=== PATIENT | female | born 1935 | race Caucasian/White ===

== ENCOUNTER 2018-01-26 13:46 | Inpatient (IN) | payer BC, MEDICARE ==
[~2018-01-26] VITALS: Ht 165.1 cm; Wt 77.1 kg
--- NOTE | 2018-01-26 06:55 | NUR ---
CALLED [facility] FOR ORDERS FOR PT. 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 AWAITING ORDER FOR PT. WILL ENDORSE TO MARINE FUEL DOCK ATTENDANT.
[~2018-01-26 13:46] MED LIST: ACET-73 PO; ACID1TAB12 PO; ASPI-605 PO; CHOL10002 PO; CHOL20004 PO; CHOL4PAC5 PO; CYAN10009 PO; DIPH1TAB PO; HYDR-4354 PO; LIDO30AD10 TD; LORA-258 PO; LORA0.5T48 PO; LOSA100T15 PO; MAG30ORA PO; MAGN400T26 PO; METR250T PO; MULT1TAB11 PO; POTA-10 PO; PREDNISONE PO; PROC-11 PO; TEMA15CA5 PO; TEMA7.5C PO; [UNRECOGNIZED DRUG - OTHER] PO
[2018-01-26 14:34] LABS: BASOPHILS % (AUTO) 0.3 % (0.0-2.0); EOSINOPHILS # (AUTO) 0.1 K/uL (0.0-0.7); EOSINOPHILS % (AUTO) 0.6 % (0.0-7.0); HEMATOCRIT 34.9 % (31.2-41.9); HEMOGLOBIN 11.8 g/dL (10.9-14.3); LYMPHOCYTES # (AUTO) 0.7 K/uL (20.0-40.0); MEAN CORPUSCULAR HEMOGLOBIN 30.9 uug (24.7-32.8); MEAN CORPUSCULAR HGB CONC 34 g/dL (32.3-35.6); MEAN CORPUSCULAR VOLUME 91.2 fL (75.5-95.3); MONOCYTES # (AUTO) 0.8 K/uL (2.0-10.0); MONOCYTES % (AUTO) 5.8 % (0.0-11.0); NEUTROPHILS # (AUTO) 12.7 K/uL (1.8-8.9); NEUTROPHILS % (AUTO) 88.3 % (38.5-71.5); PLATELET COUNT (AUTO) 377 K/uL (179-408); RED BLOOD CELL COUNT(AUTO) 3.83 MIL/uL (3.63-4.92); WHITE BLOOD COUNT (AUTO) 14.4 K/uL (3.8-11.8)
[2018-01-26 14:45] LABS: CARBON DIOXIDE 20 mmol/L (21-32); CHLORIDE 94 mmol/L (98-107); CREATININE 3.1 mg/dL (0.6-1.3); GLUCOSE 123 mg/dL (74-106); POTASSIUM 4.8 mmol/L (3.5-5.1); UREA NITROGEN, BLOOD 32 mg/dL (7-18)
[2018-01-26 14:58] LABS: ALANINE AMINOTRANSFERASE 20 U/L (14-59); ALKALINE PHOSPHATASE 84 U/L (50-136); ASPARTATE AMINOTRANSFERASE 22 U/L (15-37); BILIRUBIN,DIRECT 0.6 mg/dL (0.0-0.2); TOTAL PROTEIN, SERUM 7.6 g/dL (6.4-8.2)
[2018-01-26] MEDS ORDERED: QUET25TA PO (15:27)
[2018-01-26] MEDS ORDERED: ESCI10TA PO (15:27)
[2018-01-26] MEDS ORDERED: TRAM50TA2 PO (15:27)
[2018-01-26] MEDS ORDERED: DOCU-274 PO (15:27)
[2018-01-26] MEDS ORDERED: OXYC30TA2 PO (15:27)
[2018-01-26] MEDS ORDERED: SENN-167 PO (15:27)
[2018-01-26] MEDS ORDERED: TEMA15CA PO (15:27)
[2018-01-26] MEDS ORDERED: AZITHROMYCIN IV 500 MG in IV DEXTROSE 5% 250 ML IV ONE (15:45)
[2018-01-26] MEDS ORDERED: CEFTRIAXONE 1 G in IV DEXTROSE 5% 50 ML IV ONE (15:45)
[2018-01-26] MEDS ORDERED: AZITHROMYCIN 500 MG VIAL IV ONE (15:47)
[2018-01-26] MEDS ORDERED: CEFTRIAXONE 1 G VIAL ONE (15:47)
--- NOTE | 2018-01-26 16:55 | NUR ---
MRSA swab collected and sent to LAB.
[2018-01-26 17:41] VITALS: BP 116/42
[2018-01-26 19:16] VITALS: BP 147/70
--- NOTE | 2018-01-26 19:20 | NUR ---
Received patient lying in be. AAOX3. Can make her needs known. Denies any pain or SOB at this time. In no acute distress. NSR on tele at 86/min. On O2 at 3LPM via NC in place. IV site on right AC intact and patent. Safety measure initiated and call sánchez within reach.
--- NOTE | 2018-01-26 20:35 | NUR ---
@2029: Paged Doctor Dickens for admitting orders. Awaiting for return call. @2034: Doctor Dickens called with admitting orders given and ordered to continue current medications.
[2018-01-26] MEDS ORDERED: TRAMADOL HCL 50 MG TABLET PO ONE (21:30)
[2018-01-26] MEDS ORDERED: TEMAZEPAM 15 MG CAPSULE PO ONE (21:45)
[2018-01-26 23:35] VITALS: BP 137/83
[2018-01-27] VITALS (10 sets, daily range): BP systolic 111–185; BP diastolic 45–85
[2018-01-27] MEDS ORDERED: ACETAMINOPHEN 325 MG TABLET PO PRN (04:45)
--- NOTE | 2018-01-27 04:58 | NUR ---
PATIENT WITH NO URINARY OUTPUT TILL NOW. COMPLAINING OF WANTING TO URINATE BUT UNABLE TO. BLADDER SCAN DONE AND NOTED WITH 496CC OF URINE IN THE BLADDER. ARENAS CATHETER FR 16 WITH 10ML BALLOON INSERTED PER ORDER AND NOTED WITH 500ML OF YELLOW URINE OUTPUT ON ARENAS BAG. PATIENT FELT RELIEF RIGHT AFTER.
--- NOTE | 2018-01-27 06:08 | NUR ---
AAOX3. Denies any pain or SOB at this time. In no acute distress. NSR on tele at 78/min. On O2 at 3LPM via NC in place. o2 sat a 98%. Pepe catheter intact and draining via gravity. IV site on right AC intact and patent. Needs assessed and attended to. Safety measure maintained and call sánchez within reach.
[2018-01-27 07:07] LABS: BASOPHILS # (AUTO) 0.1 K/uL (0.0-8.0); BASOPHILS % (AUTO) 0.5 % (0.0-2.0); EOSINOPHILS # (AUTO) 0.2 K/uL (0.0-0.7); HEMATOCRIT 31.9 % (31.2-41.9); HEMOGLOBIN 10.8 g/dL (10.9-14.3); LYMPHOCYTES # (AUTO) 0.6 K/uL (20.0-40.0); LYMPHOCYTES % (AUTO) 5.3 % (20.5-51.5); MEAN CORPUSCULAR HEMOGLOBIN 30.9 uug (24.7-32.8); MEAN CORPUSCULAR HGB CONC 34 g/dL (32.3-35.6); MONOCYTES # (AUTO) 0.8 K/uL (2.0-10.0); MONOCYTES % (AUTO) 6.6 % (0.0-11.0); NEUTROPHILS # (AUTO) 9.8 K/uL (1.8-8.9); NEUTROPHILS % (AUTO) 85.6 % (38.5-71.5); PLATELET COUNT (AUTO) 357 K/uL (179-408); WHITE BLOOD COUNT (AUTO) 11.4 K/uL (3.8-11.8)
[2018-01-27 07:15] LABS: CARBON DIOXIDE 23 mmol/L (21-32); CHLORIDE 97 mmol/L (98-107); GLUCOSE 104 mg/dL (74-106); POTASSIUM 4.9 mmol/L (3.5-5.1); UREA NITROGEN, BLOOD 34 mg/dL (7-18)
[2018-01-27] MEDS: predniSONE 5 MG TABLET PO SCH (08:58)
[2018-01-27] MEDS: SENNOSIDES 1 TABLET PO SCH (08:58)
[2018-01-27] MEDS: DOCUSATE SODIUM 100 MG CAPSULE PO SCH ×2 (08:58→20:56)
[2018-01-27] MEDS ORDERED: OXYCODONE HCL 10 MG TAB.SR.12H PO SCH (09:00)
[2018-01-27] MEDS ORDERED: LOSARTAN POTASSIUM 50 MG TABLET PO SCH (09:00)
[2018-01-27] MEDS ORDERED: OXYCODONE HCL 5 MG TABLET PO SCH (09:00)
[2018-01-27] MEDS ORDERED: POTASSIUM CHLORIDE 10 MEQ TAB.PRT.SR PO SCH (09:00)
[2018-01-27] MEDS: ESCITALOPRAM OXALATE 10 MG TABLET PO SCH (09:00)
[2018-01-27] MEDS: QUETIAPINE FUMARATE 25 MG TABLET PO SCH ×2 (09:01→21:50)
[2018-01-27] MEDS: TRAMADOL HCL 50 MG TABLET PO SCH ×2 (09:02→20:58)
[2018-01-27] MEDS: IV NS 1000 ML 1,000 ML IV PRN (10:38)
[2018-01-27] MEDS: OXYCODONE HCL 10 MG TAB.SR.12H PO SCH ×3 (12:00→20:56)
--- NOTE | 2018-01-27 15:00 | NUR ---
patient confused and disoriented, no altered mental status from baseline. patient becoming increasingly anxious, frequent redirection needed, patient attempting to pull out agee catheter, pulled out IV line, removing nasal canula. patient remains confused frequent redirection needed for emotional support. patient calm intermittently, however has poor insight/impaired. judgement is impaired. continue to monitor and redirect patient.
[2018-01-27 15:29] LABS: *BILIRUBIN,URIN NEGATIVE (NEGATIVE); *BLOOD, URINE 1+ (NEGATIVE); *CLARITY,URINE SLIGHTLY CLOUDY (CLEAR); *COLOR,URINE YELLOW (YELLOW); *KETONES,URINE NEGATIVE (NEGATIVE); *PROTEIN,URINE TRACE (NEGATIVE); *UROBILINOGEN,URINE 0.2 E.U./dl (NORMAL); LEUKOCYTE ESTERASE ,URINE 2+ (NEGATIVE); NITRITE, URINE NEGATIVE (NEGATIVE); PH,URINE 5.5 (5.0-8.0); UGLUCOSE NEGATIVE (NEGATIVE)
[2018-01-27 15:34] LABS: *CREATININE,URINE 43.4 mg/dL (30-125); *URINE TOTAL PROTEIN RANDOM 32.1 mg/dL (<150/24HR)
[2018-01-27] MEDS ORDERED: AZITHROMYCIN IV 500 MG in IV DEXTROSE 5% 250 ML IV SCH (17:00)
[2018-01-27 17:02] LABS: WBC,URINE 20-50 /HPF (0-3)
[2018-01-27 17:03] LABS: MUCUS,URINE FEW /LPF (0-FEW); URINE AMORPHOUS URATE MODERATE /HPF
--- NOTE | 2018-01-27 17:20 | NUR ---
patient calm enough to start another IV line, patient continues with episodes of anxiety, frequent redirection needed.
[2018-01-27] MEDS: CEFTRIAXONE 1 G in IV DEXTROSE 5% 50 ML IV SCH (17:38)
--- NOTE | 2018-01-27 19:15 | NUR ---
Received patient lying in bed. AAOX1-2 with periods of confusion. Slightly anxious. No signs or symptoms of any pain or SOB at this time. In no acute distress. On O2 at 2LPM via NC in place. NSR on tele at 82/min. IV site on right forearm intact and patent. Safety measure initiated and call sánchez within reach.
--- NOTE | 2018-01-27 19:20 | NUR ---
patient continues intermittenly hypertensive, however patient continues anxious, confused disoriented, verbalizing she needs to get picked up by her son, removing oxygen, 02 level 93-94% on room air . Paged Nephrology Doctor thru exchange, spoke with Dr Kirkland informed of patient behavior, discussed HS meds, Orders received for one time dose of Seroquel 25mg PO once now and Hydralazine 20mg PO Q8PRN for SBP greater than 170. orders repeated back to MD, endorsed to nursing.
[2018-01-27] MEDS ORDERED: QUETIAPINE FUMARATE 25 MG TABLET PO ONE (19:30)
[2018-01-27] MEDS ORDERED: hydrALAZINE HCL 10 MG TABLET PO PRN (19:30)
[2018-01-27] MEDS: TEMAZEPAM 15 MG CAPSULE PO SCH (21:50)
[2018-01-28] VITALS (7 sets, daily range): BP systolic 99–157; BP diastolic 40–116
[2018-01-28] MEDS: PANTOPRAZOLE SODIUM 40 MG TABLET.DR PO SCH (06:04)
--- NOTE | 2018-01-28 06:22 | NUR ---
AAOX1-2 with periods of confusion. No signs or symptoms of any pain or SOB at this time. On O2 at 2LPM via NC in place. NSR on tele at 85/min. IV site on right forearm intact and patent. IVF infusing. Safety measure maintained and call sánchez within reach.
[2018-01-28 06:41] LABS: BASOPHILS % (AUTO) 0.2 % (0.0-2.0); EOSINOPHILS # (AUTO) 0.3 K/uL (0.0-0.7); EOSINOPHILS % (AUTO) 2.4 % (0.0-7.0); HEMATOCRIT 33.3 % (31.2-41.9); HEMOGLOBIN 11.3 g/dL (10.9-14.3); LYMPHOCYTES % (AUTO) 8.7 % (20.5-51.5); MEAN CORPUSCULAR HEMOGLOBIN 31.1 uug (24.7-32.8); MEAN CORPUSCULAR HGB CONC 34 g/dL (32.3-35.6); MEAN CORPUSCULAR VOLUME 91.6 fL (75.5-95.3); MONOCYTES # (AUTO) 0.7 K/uL (2.0-10.0); MONOCYTES % (AUTO) 5.5 % (0.0-11.0); NEUTROPHILS # (AUTO) 9.9 K/uL (1.8-8.9); NEUTROPHILS % (AUTO) 83.2 % (38.5-71.5); PLATELET COUNT (AUTO) 358 K/uL (179-408); RED BLOOD CELL COUNT(AUTO) 3.64 MIL/uL (3.63-4.92); WHITE BLOOD COUNT (AUTO) 11.9 K/uL (3.8-11.8)
[2018-01-28 06:56] LABS: ALANINE AMINOTRANSFERASE 22 U/L (14-59); ALKALINE PHOSPHATASE 96 U/L (50-136); ASPARTATE AMINOTRANSFERASE 22 U/L (15-37); BILIRUBIN,TOTAL 0.3 mg/dL (0.2-1.0); CARBON DIOXIDE 23 mmol/L (21-32); CHLORIDE 99 mmol/L (98-107); CREATININE 2.1 mg/dL (0.6-1.3); GLUCOSE 87 mg/dL (74-106); PHOSPHOROUS 4.6 mg/dL (2.5-4.9); POTASSIUM 4.9 mmol/L (3.5-5.1); TOTAL PROTEIN, SERUM 7.1 g/dL (6.4-8.2); UREA NITROGEN, BLOOD 32 mg/dL (7-18)
[2018-01-28] MEDS: ENOXAPARIN SODIUM 30 MG/0.3 ML DISP.SYRIN SUBCUT SCH ×2 (09:00→10:00)
[2018-01-28 09:05] LABS: MAGNESIUM 2.2 mg/dL (1.8-2.4); PHOSPHOROUS 4.9 mg/dL (2.5-4.9)
[2018-01-28] MEDS: predniSONE 5 MG TABLET PO SCH (09:58)
[2018-01-28] MEDS: DOCUSATE SODIUM 100 MG CAPSULE PO SCH ×2 (09:58→22:05)
[2018-01-28] MEDS: OXYCODONE HCL 10 MG TAB.SR.12H PO SCH ×2 (09:58→22:08)
[2018-01-28] MEDS: QUETIAPINE FUMARATE 25 MG TABLET PO SCH ×2 (09:58→22:05)
[2018-01-28] MEDS: SENNOSIDES 1 TABLET PO SCH (09:58)
[2018-01-28] MEDS: ESCITALOPRAM OXALATE 10 MG TABLET PO SCH (09:58)
[2018-01-28] MEDS: TRAMADOL HCL 50 MG TABLET PO SCH ×2 (09:58→22:05)
[2018-01-28] MEDS: IV NS 1000 ML 1,000 ML IV PRN (10:18)
--- NOTE | 2018-01-28 10:30 | NUR ---
Held Lovenox 30 mg due to thoracentesis procedure today. consent obtain over the phone by the son and obtained verbali consent from the patient Addendum: 01/28/18 at 1454 by COY BORJAS RN Charge nurse verified consent. Son's name is Anjum Martinez. Dr. Figueroa assessed patient in the morning and explained risks and benefits of thoracentesis to the patient
--- NOTE | 2018-01-28 14:20 | NUR ---
WOUND CARE CONSULT: PT PRESENTS WITH RT EAR WOUND/LESION, AND RT LATERAL ANKLE DRY ESCHAR, PRESENT ON ADMISSION. RECOMMEND SURGICAL CONSULT. RECOMMENDATIONS MADE FOR WOUND CARE AND SKIN PROTECTION. DISCUSSED WITH NURSING STAFF. WILL SEE PRN. BUTLER IN AGREEMENT WITH PLAN OF CARE.
--- NOTE | 2018-01-28 14:24 | NUR ---
S/P right side thoracentesis 210cc/hr removed. Collected drainage from right outer ear tragus and sent down to lab
[2018-01-28] MEDS ORDERED: Z GUARD REMEDY PASTE 57 GM TUBE TOP PRN (14:30)
--- NOTE | 2018-01-28 14:32 | NUR ---
Wound care: Right ankle offloading, mepilex applied to eschar. Right ear tragus, cleansed with NS, applied Xeroform and covered with dry dressing
[2018-01-28] MEDS: CEFTRIAXONE 1 G in IV DEXTROSE 5% 50 ML IV SCH (15:00)
--- NOTE | 2018-01-28 15:26 | NUR ---
Right side fluid from thoracentesis sent down to lab as well
--- NOTE | 2018-01-28 15:27 | NUR ---
Patient is sleeping comfortable after thoracentesis, no immediate s/sx of SOB, pain, distress or discomfort. VS as ordered and documented by RESIDENTIAL CASE MANAGER, VS stable. Will continue to monitor the patient.
--- NOTE | 2018-01-28 19:30 | NUR ---
Received patient in stable condition. No acute distress noted. Vital signs within range. Pertinent assessment completed. Patient noted sleeping at start of shift, slightly lethargic upon assessment. Noted with right ear dressing. Dressing intact. No signs of leaking/drainage at wound site. Patient also has a right heel wound with mepilex covering the wound site. Dressing intact. Right forearm IV site is patent running with IV NS at 65cc/hr. No signs of infiltration noted. On ATB therapy for UTI & PNA. Patient also with agee cath. Agee bag is off the floor & hanging below the level of the bladder. Patient non ambulatory. Bed in low position & locked. Call light within reach. Will continue to monitor through shift.
[2018-01-28] MEDS: TEMAZEPAM 15 MG CAPSULE PO SCH (22:05)
[2018-01-28] MEDS: Z GUARD REMEDY PASTE 57 GM TUBE TOP SCH (22:07)
[2018-01-29] MEDS: IV NS 1000 ML 1,000 ML IV PRN ×2 (02:37→19:50)
[2018-01-29 03:19] VITALS: BP 138/79
[2018-01-29 06:26] LABS: BASOPHILS # (AUTO) 0.1 K/uL (0.0-8.0); BASOPHILS % (AUTO) 0.8 % (0.0-2.0); EOSINOPHILS # (AUTO) 0.2 K/uL (0.0-0.7); EOSINOPHILS % (AUTO) 1.5 % (0.0-7.0); HEMATOCRIT 30.5 % (31.2-41.9); HEMOGLOBIN 10.3 g/dL (10.9-14.3); LYMPHOCYTES # (AUTO) 0.8 K/uL (20.0-40.0); LYMPHOCYTES % (AUTO) 8.3 % (20.5-51.5); MEAN CORPUSCULAR HEMOGLOBIN 30.7 uug (24.7-32.8); MEAN CORPUSCULAR HGB CONC 34 g/dL (32.3-35.6); MEAN CORPUSCULAR VOLUME 91.4 fL (75.5-95.3); MONOCYTES # (AUTO) 0.6 K/uL (2.0-10.0); MONOCYTES % (AUTO) 6.3 % (0.0-11.0); NEUTROPHILS # (AUTO) 8.3 K/uL (1.8-8.9); NEUTROPHILS % (AUTO) 83.1 % (38.5-71.5); PLATELET COUNT (AUTO) 361 K/uL (179-408); RED BLOOD CELL COUNT(AUTO) 3.34 MIL/uL (3.63-4.92)
[2018-01-29] MEDS: PANTOPRAZOLE SODIUM 40 MG TABLET.DR PO SCH (06:33)
[2018-01-29 06:41] LABS: ALANINE AMINOTRANSFERASE 18 U/L (14-59); ALKALINE PHOSPHATASE 81 U/L (50-136); ASPARTATE AMINOTRANSFERASE 18 U/L (15-37); BILIRUBIN,TOTAL 0.3 mg/dL (0.2-1.0); CARBON DIOXIDE 22 mmol/L (21-32); CHLORIDE 104 mmol/L (98-107); CREATININE 1.5 mg/dL (0.6-1.3); GLUCOSE 99 mg/dL (74-106); MAGNESIUM 1.8 mg/dL (1.8-2.4); PHOSPHOROUS 4.1 mg/dL (2.5-4.9); POTASSIUM 5.6 mmol/L (3.5-5.1); TOTAL PROTEIN, SERUM 6.4 g/dL (6.4-8.2); UREA NITROGEN, BLOOD 29 mg/dL (7-18)
--- NOTE | 2018-01-29 06:49 | NUR ---
Stable during the night. No acute distress noted. Vital signs within range. All needs attended to. Kept clean & dry, changed per diaper soiling. Turned & reposition every 2 hours. Skin care provided. Dressings intact & dry. All medications administered per MD order. Safety measures implemented. Call light in reach. Will endorse to day shift nurse.
[2018-01-29] MEDS: QUETIAPINE FUMARATE 25 MG TABLET PO SCH ×2 (08:16→20:29)
[2018-01-29] MEDS: ESCITALOPRAM OXALATE 10 MG TABLET PO SCH (08:16)
[2018-01-29] MEDS: predniSONE 5 MG TABLET PO SCH (08:16)
[2018-01-29] MEDS: DOCUSATE SODIUM 100 MG CAPSULE PO SCH ×3 (08:16→20:29)
[2018-01-29] MEDS: SENNOSIDES 1 TABLET PO SCH (08:16)
[2018-01-29] MEDS: OXYCODONE HCL 10 MG TAB.SR.12H PO SCH ×2 (09:36→22:17)
[2018-01-29] MEDS: ENOXAPARIN SODIUM 30 MG/0.3 ML DISP.SYRIN SUBCUT SCH (09:37)
[2018-01-29] MEDS: Z GUARD REMEDY PASTE 57 GM TUBE TOP SCH ×2 (09:38→20:33)
[2018-01-29] MEDS: TRAMADOL HCL 50 MG TABLET PO SCH ×2 (09:39→20:30)
[2018-01-29] MEDS ORDERED: SODIUM POLYSTYRENE SULFONATE 15 G/60 ML LIQUID UDC PO ONE (09:45)
[2018-01-29] MEDS ORDERED: FUROSEMIDE 40 MG/4 ML VIAL IV ONE ×2 (09:45→10:45)
[2018-01-29 11:21] VITALS: BP 149/59
[2018-01-29 14:48] LABS: CARBON DIOXIDE 23 mmol/L (21-32); CHLORIDE 103 mmol/L (98-107); CREATININE 1.4 mg/dL (0.6-1.3); GLUCOSE 115 mg/dL (74-106); UREA NITROGEN, BLOOD 26 mg/dL (7-18)
[2018-01-29 15:18] VITALS: BP 133/67
[2018-01-29] MEDS: CEFTRIAXONE 1 G in IV DEXTROSE 5% 50 ML IV SCH (15:22)
--- NOTE | 2018-01-29 18:25 | NUR ---
Pt was resting comfortably in bed, decrease of appetite noted, 25% consumed every meal, pt had 1 bowel movement that was not formed and yellow in color. Swallow evaluation ordered and pt diet was changed to puree. Pain managed with medication and pt verbalizes pain 10/10. medication effective pt sleeping throughout shift. 1800 cc were collected from agee catheter and no signs of cloudy, sedimentation in Agee. Urine yellow and clear. SOB not noted, on 2L nasal cannula, Continue to monitor pt.
--- NOTE | 2018-01-29 19:30 | NUR ---
Received patient in stable condition. No acute distress noted. Currently sleeping at start of shift, easy to arouse. Pertinent assessment completed. A/Ox1-2 with some confusion. Able to make some of her needs known. Dressing on right ear/side of face is dry, intact, & clean. No leakage or draining noted at start of shift. Right ankle dressing also clean, dry, intact. Patient with agee cath. IV site is patent running with NS at 65cc/hr. Bed in low position & locked. Call light within reach. Will continue to monitor through shift.
[2018-01-29 20:00] VITALS: BP 163/66
[2018-01-29] MEDS: TEMAZEPAM 15 MG CAPSULE PO SCH (21:00)
--- NOTE | 2018-01-29 22:17 | NUR ---
Restoril not administered. Patient sleeping well. No distress noted. Will continue to monitor through shift.
[2018-01-30 05:00] VITALS: BP 173/74
[2018-01-30 06:15] LABS: BASOPHILS % (AUTO) 0.7 % (0.0-2.0); EOSINOPHILS # (AUTO) 0.3 K/uL (0.0-0.7); EOSINOPHILS % (AUTO) 4.7 % (0.0-7.0); HEMATOCRIT 29.2 % (31.2-41.9); MEAN CORPUSCULAR HGB CONC 34 g/dL (32.3-35.6); MEAN CORPUSCULAR VOLUME 90.1 fL (75.5-95.3); MONOCYTES # (AUTO) 0.6 K/uL (2.0-10.0); MONOCYTES % (AUTO) 7.7 % (0.0-11.0); NEUTROPHILS # (AUTO) 5.4 K/uL (1.8-8.9); NEUTROPHILS % (AUTO) 72.9 % (38.5-71.5); PLATELET COUNT (AUTO) 364 K/uL (179-408); RED BLOOD CELL COUNT(AUTO) 3.24 MIL/uL (3.63-4.92); WHITE BLOOD COUNT (AUTO) 7.4 K/uL (3.8-11.8)
[2018-01-30] MEDS: PANTOPRAZOLE SODIUM 40 MG TABLET.DR PO SCH (06:15)
--- NOTE | 2018-01-30 06:33 | NUR ---
Patient slept well during the night. No acute distress noted. All needs attended to. Kept clean & dry. Diaper changed per soiling. Dressings to ear/right side of face Changed. Right ankle dressing clean, dry, intact. Skin care provided. All medications administered per order. Patient compliant with care. Safety measures implemented. Call light within reach. Will endorse to day shift nurse.
[2018-01-30 06:41] LABS: ALANINE AMINOTRANSFERASE 25 U/L (14-59); ALKALINE PHOSPHATASE 75 U/L (50-136); ASPARTATE AMINOTRANSFERASE 34 U/L (15-37); BILIRUBIN,TOTAL 0.3 mg/dL (0.2-1.0); CARBON DIOXIDE 29 mmol/L (21-32); CHLORIDE 103 mmol/L (98-107); CREATININE 1.1 mg/dL (0.6-1.3); GLUCOSE 83 mg/dL (74-106); MAGNESIUM 1.3 mg/dL (1.8-2.4); PHOSPHOROUS 2.7 mg/dL (2.5-4.9); POTASSIUM 3.9 mmol/L (3.5-5.1); UREA NITROGEN, BLOOD 20 mg/dL (7-18)
--- NOTE | 2018-01-30 07:20 | NUR ---
PATIENT RECEIVED ON BED. NO ACUTE DISTRESS NOTED. IV ACCESS INTACT AND PATENT. IVF INFUSING WELL BM X1 PER ENTRY LEVEL ASSISTANT MANAGER. WOUND DRESSING CLEAN AND DRY, INTACT ON RIGHT EAR. NO COMPLAINTS OF PAIN/DISCOMFORT AT THIS TIME FC IN PLACE AND INTACT. CALL LIGHT CARLOS BULL. WILL CONTINUE TO MONITOR CLOSELY.
[2018-01-30] MEDS ORDERED: CEFT1VIA15 IV (09:39)
[2018-01-30] MEDS: SENNOSIDES 1 TABLET PO SCH (09:50)
[2018-01-30] MEDS: QUETIAPINE FUMARATE 25 MG TABLET PO SCH (09:50)
[2018-01-30] MEDS: ESCITALOPRAM OXALATE 10 MG TABLET PO SCH (09:50)
[2018-01-30] MEDS: DOCUSATE SODIUM 100 MG CAPSULE PO SCH (09:50)
[2018-01-30] MEDS: predniSONE 5 MG TABLET PO SCH (09:51)
[2018-01-30] MEDS: TRAMADOL HCL 50 MG TABLET PO SCH (09:51)
[2018-01-30] MEDS: Z GUARD REMEDY PASTE 57 GM TUBE TOP SCH (09:52)
[2018-01-30] MEDS: ENOXAPARIN SODIUM 30 MG/0.3 ML DISP.SYRIN SUBCUT SCH (09:52)
[2018-01-30] MEDS: MAGNESIUM SULFATE/D5W 100 ML IV SCH ×4 (09:55→15:22)
[2018-01-30 11:04] VITALS: BP 166/77
[2018-01-30] MEDS: OXYCODONE HCL 5 MG TABLET PO SCH ×2 (11:57→17:35)
[2018-01-30 15:03] VITALS: BP 149/65
[2018-01-30] MEDS: IV NS 1000 ML 1,000 ML IV PRN (15:25)
[2018-01-30] MEDS: CEFTRIAXONE 1 G in IV DEXTROSE 5% 50 ML IV SCH (15:25)
--- NOTE | 2018-01-30 18:30 | NUR ---
PATIENT DISCHARGED TO [facility] IN STABLE CONDITION. REPORT GIVEN EARLIER TO BELL BRISCOE. DISCHARGE PAPERS GIVEN AND EXPLAINED. BELONGINGS LIST COMPLETED. PATIENT REFUSED DISCHARGE PICTURES OF BILATERAL ANKLES BUT WAS ABLE TO TAKE PICTURE OF RIGHT EAR. PATIENT LEFT WITH IV ACCESS ON THE LEFT AC #20 INTACT AND PATENT. PATIENT LEFT HOSPITAL [facility]IA AM[facility]ULANCE
--- NOTE | 2018-02-03 16:47 | NUR ---
Pt thoracentesis Cx results came back positive for MRSA. [facility] was contacted and result was faxed to them at [phone].
== END 2018-01-30 18:30 | DRG 177 ==
LOC: ER 13:46 → TELE 16:46 → MED 01-28 08:11
PROVIDERS: ADMIT Internal Medicine; ATTEND Internal Medicine
PROC: 0W993ZX Drainage of Right Pleural Cavity, Percutaneous Approach, Diagnostic (ICD-10-PCS; principal; 2018-01-28)
DX: J15.6 Pneumonia due to other Gram-negative bacteria (principal); N17.0 Acute kidney failure with tubular necrosis; J91.8 Pleural effusion in other conditions classified elsewhere; E87.1 Hypo-osmolality and hyponatremia; J98.11 Atelectasis; G89.4 Chronic pain syndrome; Z79.891 Long term (current) use of opiate analgesic; E87.5 Hyperkalemia; Z79.52 Long term (current) use of systemic steroids; K52.9 Noninfective gastroenteritis and colitis, unspecified; L89.899 Pressure ulcer of other site, unspecified stage; Z87.891 Personal history of nicotine dependence; I13.10 Hypertensive heart and chronic kidney disease without heart failure, with stage 1 through stage 4 chronic kidney disease, or unspecified chronic kidney disease; N18.9 Chronic kidney disease, unspecified; R09.02 Hypoxemia; Z79.82 Long term (current) use of aspirin; I70.0 Atherosclerosis of aorta; F41.9 Anxiety disorder, unspecified
CPT/HCPCS: 32555; 36415; 70030-TC; 71045; 76770; 82533; 83605; 83615; 83735; 84100; 84155; 84156; 84300; 84443; 85025; 85730; 87040; 87070; 87077; 87086; 87205; 87400; 92526; 92610; 93005; 97165; A4663; G0378; J0456; J0696; J1650; J1940; J3475; J7030; J7050; J7060; J7512

== ENCOUNTER 2019-01-17 20:34 | Inpatient (IN) | payer MEDICARE ==
[~2019-01-17] VITALS: Ht 165.1 cm; Wt 68.5 kg
[~2019-01-17 20:34] MED LIST changes: -ACET-73 PO; -ACID1TAB12 PO; -ASPI-605 PO; +CEFT1VIA15 IV; -CHOL10002 PO; -CHOL20004 PO; -CHOL4PAC5 PO; -CYAN10009 PO; -DIPH1TAB PO; +DOCU-274 PO; +ESCI10TA PO; -HYDR-4354 PO; -LIDO30AD10 TD; -LORA-258 PO; -LORA0.5T48 PO; -LOSA100T15 PO; +LOSA100T31 PO; -MAG30ORA PO; -MAGN400T26 PO; -METR250T PO; -MULT1TAB11 PO; +OXYC30TA2 PO; -PROC-11 PO; +QUET25TA PO; +SENN-168 PO; +TEMA15CA PO; -TEMA15CA5 PO; -TEMA7.5C PO; +TRAM50TA2 PO; -[UNRECOGNIZED DRUG - OTHER] PO
[2019-01-17] MEDS ORDERED: ONDANSETRON 4 MG/2 ML VIAL IV ONE (21:00)
[2019-01-17] MEDS ORDERED: IV NORMAL SALINE 1000 ML BAG IV ONE ×2 (21:00→22:00)
[2019-01-17] MEDS ORDERED: MORPHINE SULFATE 2 MG/1 ML DISP.SYRIN IV ONE (21:00)
[2019-01-17 21:17] LABS: BASOPHILS % (AUTO) 0.3 % (0.0-2.0); EOSINOPHILS # (AUTO) 0.1 K/uL (0.0-0.7); EOSINOPHILS % (AUTO) 0.8 % (0.0-7.0); HEMATOCRIT 41.8 % (31.2-41.9); HEMOGLOBIN 13.6 g/dL (10.9-14.3); LYMPHOCYTES # (AUTO) 1.5 K/uL (20.0-40.0); LYMPHOCYTES % (AUTO) 10.6 % (20.5-51.5); MEAN CORPUSCULAR HEMOGLOBIN 30.6 uug (24.7-32.8); MEAN CORPUSCULAR HGB CONC 33 g/dL (32.3-35.6); MEAN CORPUSCULAR VOLUME 93.8 fL (75.5-95.3); MONOCYTES % (AUTO) 0.2 % (0.0-11.0); NEUTROPHILS # (AUTO) 12.5 K/uL (1.8-8.9); NEUTROPHILS % (AUTO) 88.1 % (38.5-71.5); PLATELET COUNT (AUTO) 266 K/uL (179-408); RED BLOOD CELL COUNT(AUTO) 4.45 MIL/uL (3.63-4.92); WHITE BLOOD COUNT (AUTO) 14.2 K/uL (3.8-11.8)
[2019-01-17] MEDS ORDERED: MORPHINE SULFATE 2 MG/1 ML DISP.SYRIN ONE (21:22)
[2019-01-17] MEDS ORDERED: ONDANSETRON 4 MG/2 ML VIAL ONE (21:22)
[2019-01-17 21:26] LABS: POTASSIUM 3.7 mmol/L (3.5-5.1)
[2019-01-17 21:32] LABS: BILIRUBIN,DIRECT 0.8 mg/dL (0.0-0.2); BILIRUBIN,TOTAL 2.1 mg/dL (0.2-1.0)
[2019-01-17] MEDS ORDERED: PIPERACILLIN/TAZOBACTAM/D5W 50 ML IV ONE (21:44)
[2019-01-17] MEDS ORDERED: PIPERACILLIN SODIUM/TAZOBACTAM 3.375 G in IV DEXTROSE 5% 50 ML IV ONE (21:45)
[2019-01-17] MEDS ORDERED: GABA-532 PO (21:51)
[2019-01-17] MEDS ORDERED: POTA10CA43 PO (21:51)
[2019-01-17] MEDS ORDERED: TRAM50TA2 PO (21:51)
[2019-01-17] MEDS ORDERED: TEMA15CA PO (21:51)
[2019-01-17] MEDS ORDERED: ESCI10TA PO (21:51)
[2019-01-17] MEDS ORDERED: CHOL200078 PO (21:51)
[2019-01-17] MEDS ORDERED: QUET25TA PO (21:51)
[2019-01-17] MEDS ORDERED: ONDA4TAB5 PO (21:51)
[2019-01-17] MEDS ORDERED: PRED2.5T PO (21:51)
[2019-01-17] MEDS ORDERED: LOSA100T31 PO (21:51)
[2019-01-17] MEDS ORDERED: SWABABLE VALVE TRANSFER SET EA MC ONE (21:54)
[2019-01-17] MEDS ORDERED: IOHEXOL 300MG/ML 100 ML INFUS..BTL ONE (21:55)
[2019-01-17] MEDS ORDERED: IV NORMAL SALINE 250 ML IV ONE (21:55)
[2019-01-17 22:43] LABS: *BILIRUBIN,URIN NEGATIVE (NEGATIVE); *BLOOD, URINE 2+ (NEGATIVE); *CLARITY,URINE CLOUDY (CLEAR); *COLOR,URINE YELLOW (YELLOW); *KETONES,URINE NEGATIVE (NEGATIVE); *UROBILINOGEN,URINE 0.2 E.U./dl (NORMAL); LEUKOCYTE ESTERASE ,URINE 3+ (NEGATIVE); NITRITE, URINE POSITIVE (NEGATIVE); PH,URINE 5.5 (5.0-8.0); UGLUCOSE NEGATIVE (NEGATIVE)
[2019-01-17 22:45] LABS: BACTERIA,URINE MANY /HPF (NONE SEEN); RBC,URINE 20-50 /HPF (0-3); SQUAMOUS EPITHELIAL CELL,UR FEW /HPF (NONE SEEN); WBC,URINE TNTC /HPF (0-3)
[2019-01-18] VITALS (10 sets, daily range): BP systolic 100–140; BP diastolic 37–71
[2019-01-18] MEDS ORDERED: ACETAMINOPHEN 325 MG TABLET PO PRN (01:30)
[2019-01-18] MEDS ORDERED: IV NS 1000 ML 1,000 ML IV PRN (01:30)
[2019-01-18] MEDS ORDERED: ONDANSETRON 4 MG/2 ML VIAL IV PRN (01:30)
[2019-01-18] MEDS ORDERED: PIPERACILLIN/TAZOBACTAM/D5W 50 ML IV ONE (04:22)
[2019-01-18 05:43] LABS: BASOPHILS % (AUTO) 0.1 % (0.0-2.0); HEMATOCRIT 35.5 % (31.2-41.9); HEMOGLOBIN 11.7 g/dL (10.9-14.3); LYMPHOCYTES # (AUTO) 0.5 K/uL (20.0-40.0); LYMPHOCYTES % (AUTO) 2.7 % (20.5-51.5); MEAN CORPUSCULAR HEMOGLOBIN 30.3 uug (24.7-32.8); MEAN CORPUSCULAR HGB CONC 33 g/dL (32.3-35.6); MONOCYTES # (AUTO) 0.6 K/uL (2.0-10.0); MONOCYTES % (AUTO) 3.2 % (0.0-11.0); NEUTROPHILS # (AUTO) 17.1 K/uL (1.8-8.9); PLATELET COUNT (AUTO) 204 K/uL (179-408); RED BLOOD CELL COUNT(AUTO) 3.86 MIL/uL (3.63-4.92); WHITE BLOOD COUNT (AUTO) 18.2 K/uL (3.8-11.8)
[2019-01-18] MEDS ORDERED: PIPERACILLIN SODIUM/TAZOBACTAM 3.375 G in IV DEXTROSE 5% 50 ML IV SCH (06:00)
[2019-01-18] MEDS ORDERED: ONDANSETRON HCL 4 MG TABLET PO PRN (06:15)
[2019-01-18 06:19] LABS: CREATININE 1.1 mg/dL (0.6-1.3); PHOSPHOROUS 1.9 mg/dL (2.5-4.9); TOTAL PROTEIN, SERUM 5.8 g/dL (6.4-8.2)
[2019-01-18 06:36] LABS: POTASSIUM 2.8 mmol/L (3.5-5.1)
[2019-01-18 06:37] LABS: MAGNESIUM 1.2 mg/dL (1.8-2.4)
[2019-01-18] MEDS ORDERED: predniSONE 5 MG TABLET PO SCH (08:00)
[2019-01-18] MEDS ORDERED: predniSONE 2.5 MG TABLET PO SCH (08:00)
[2019-01-18] MEDS: POTASSIUM CHLORIDE 10 MEQ TAB.PRT.SR PO SCH (09:00)
[2019-01-18] MEDS: GABAPENTIN 100 MG CAPSULE PO SCH (09:00)
[2019-01-18] MEDS: TRAMADOL HCL 50 MG TABLET PO SCH ×3 (09:00→17:00)
[2019-01-18] MEDS: CHOLECALCIFEROL 1,000 UNIT TABLET PO SCH (09:00)
[2019-01-18] MEDS: POTASSIUM CHLORIDE 50 ML IV SCH ×4 (11:02→15:20)
[2019-01-18] MEDS: MAGNESIUM SULFATE/D5W 100 ML IV SCH ×4 (11:02→14:28)
[2019-01-18] MEDS ORDERED: POTASSIUM CHLORIDE 40 MEQ in IV D5/ 0.9% NACL 1,000 ML IV PRN (12:15)
[2019-01-18] MEDS ORDERED: Z GUARD REMEDY PASTE 57 GM TUBE TOP PRN (13:00)
[2019-01-18] MEDS ORDERED: POTASSIUM PHOSPHATE MM 7.5 MMOL in IV DEXTROSE 5% 100 ML IV SCH ×2 (13:00→14:00)
[2019-01-18] MEDS: METRONIDAZOLE 500 MG/NS 100ML 500 MG in PREMIXED 1 EACH IV SCH ×2 (13:29→13:36)
[2019-01-18] MEDS ORDERED: POTASSIUM PHOSPHATE MM 7.5 MMOL in IV DEXTROSE 5% 100 ML IV ONE ×2 (13:30→17:00)
[2019-01-18] MEDS: HEPARIN SODIUM,PORCINE 5,000 UNITS/ML VIAL SQ SCH ×2 (13:39→20:54)
[2019-01-18] MEDS: PIPERACILLIN SODIUM/TAZOBACTAM 3.375 G in IV DEXTROSE 5% 50 ML IV SCH ×2 (14:27→22:03)
[2019-01-18 16:08] LABS: CREATININE 0.8 mg/dL (0.6-1.3); MAGNESIUM 3.2 mg/dL (1.8-2.4); PHOSPHOROUS 2.9 mg/dL (2.5-4.9)
[2019-01-18 16:19] LABS: POTASSIUM 8.2 mmol/L (3.5-5.1)
[2019-01-18] MEDS ORDERED: MAGNESIUM SULFATE/D5W 100 ML IV SCH (17:00)
[2019-01-18] MEDS: IV D5/ 0.9% NACL 1,000 ML IV PRN (19:54)
[2019-01-18] MEDS: LOSARTAN POTASSIUM 50 MG TABLET PO SCH (20:52)
[2019-01-18] MEDS: Z GUARD REMEDY PASTE 57 GM TUBE TOP SCH (20:53)
[2019-01-18] MEDS: TEMAZEPAM 15 MG CAPSULE PO SCH (20:57)
[2019-01-18] MEDS: TRIAMCINOLONE ACET 0.1% CREAM 15 GM TUBE TOP SCH (21:09)
[2019-01-19 00:30] VITALS: BP 136/43
[2019-01-19 04:00] VITALS: BP 125/72
[2019-01-19] MEDS: METRONIDAZOLE 500 MG/NS 100ML 500 MG in PREMIXED 1 EACH IV SCH ×3 (05:25→21:57)
[2019-01-19 05:58] LABS: CREATININE 0.8 mg/dL (0.6-1.3); MAGNESIUM 2.6 mg/dL (1.8-2.4); PHOSPHOROUS 2.8 mg/dL (2.5-4.9); POTASSIUM 3.9 mmol/L (3.5-5.1)
[2019-01-19] MEDS: PIPERACILLIN SODIUM/TAZOBACTAM 3.375 G in IV DEXTROSE 5% 50 ML IV SCH ×3 (06:03→22:49)
[2019-01-19 06:08] LABS: BASOPHILS % (AUTO) 0.1 % (0.0-2.0); EOSINOPHILS # (AUTO) 0.3 K/uL (0.0-0.7); EOSINOPHILS % (AUTO) 2.4 % (0.0-7.0); HEMOGLOBIN 10.9 g/dL (10.9-14.3); LYMPHOCYTES # (AUTO) 0.8 K/uL (20.0-40.0); LYMPHOCYTES % (AUTO) 7.2 % (20.5-51.5); MEAN CORPUSCULAR HEMOGLOBIN 30.7 uug (24.7-32.8); MEAN CORPUSCULAR HGB CONC 33 g/dL (32.3-35.6); MEAN CORPUSCULAR VOLUME 92.9 fL (75.5-95.3); MONOCYTES # (AUTO) 0.4 K/uL (2.0-10.0); MONOCYTES % (AUTO) 3.7 % (0.0-11.0); NEUTROPHILS # (AUTO) 10.2 K/uL (1.8-8.9); NEUTROPHILS % (AUTO) 86.6 % (38.5-71.5); PLATELET COUNT (AUTO) 179 K/uL (179-408); RED BLOOD CELL COUNT(AUTO) 3.55 MIL/uL (3.63-4.92); WHITE BLOOD COUNT (AUTO) 11.8 K/uL (3.8-11.8)
[2019-01-19] MEDS: IV D5/ 0.9% NACL 1,000 ML IV PRN ×2 (06:10→16:27)
[2019-01-19] MEDS: MORPHINE SULFATE 2 MG/1 ML DISP.SYRIN IV PRN ×2 (06:10→10:42)
[2019-01-19 07:38] VITALS: BP 151/56
[2019-01-19] MEDS: methylPREDNISolone SOD SUCC 40 MG/ML VIAL IV SCH (08:29)
[2019-01-19] MEDS: HEPARIN SODIUM,PORCINE 5,000 UNITS/ML VIAL SQ SCH ×2 (08:30→20:18)
[2019-01-19] MEDS: TRAMADOL HCL 50 MG TABLET PO SCH ×3 (09:00→18:45)
[2019-01-19] MEDS: POTASSIUM CHLORIDE 10 MEQ TAB.PRT.SR PO SCH (09:00)
[2019-01-19] MEDS: CHOLECALCIFEROL 1,000 UNIT TABLET PO SCH (09:00)
[2019-01-19] MEDS: GABAPENTIN 100 MG CAPSULE PO SCH (09:00)
[2019-01-19] MEDS: TRIAMCINOLONE ACET 0.1% CREAM 15 GM TUBE TOP SCH ×3 (10:44→18:45)
[2019-01-19] MEDS: Z GUARD REMEDY PASTE 57 GM TUBE TOP SCH ×2 (10:45→20:23)
[2019-01-19 11:26] VITALS: BP 145/63
[2019-01-19 15:11] VITALS: BP 148/73
[2019-01-19 20:00] VITALS: BP 151/66
[2019-01-19] MEDS: TEMAZEPAM 15 MG CAPSULE PO SCH (20:18)
[2019-01-19] MEDS: LOSARTAN POTASSIUM 50 MG TABLET PO SCH (20:18)
[2019-01-19] MEDS: MUPIROCIN 2% OINT 22 GM TUBE NS SCH (21:52)
[2019-01-20] VITALS (8 sets, daily range): BP systolic 136–164; BP diastolic 43–75
[2019-01-20] MEDS: IV D5/ 0.9% NACL 1,000 ML IV PRN ×2 (02:13→15:32)
[2019-01-20] MEDS: METRONIDAZOLE 500 MG/NS 100ML 500 MG in PREMIXED 1 EACH IV SCH ×2 (05:04→18:17)
[2019-01-20] MEDS: PIPERACILLIN SODIUM/TAZOBACTAM 3.375 G in IV DEXTROSE 5% 50 ML IV SCH ×2 (05:38→13:53)
[2019-01-20] MEDS: PANTOPRAZOLE SODIUM 40 MG TABLET.DR PO SCH (06:11)
[2019-01-20] MEDS: methylPREDNISolone SOD SUCC 40 MG/ML VIAL IV SCH (08:39)
[2019-01-20] MEDS: MUPIROCIN 2% OINT 22 GM TUBE NS SCH ×2 (08:40→20:37)
[2019-01-20] MEDS: QUETIAPINE FUMARATE 25 MG TABLET PO SCH ×2 (08:42→16:41)
[2019-01-20] MEDS: POTASSIUM CHLORIDE 10 MEQ TAB.PRT.SR PO SCH (08:42)
[2019-01-20] MEDS: CHOLECALCIFEROL 1,000 UNIT TABLET PO SCH (08:42)
[2019-01-20] MEDS: ESCITALOPRAM OXALATE 10 MG TABLET PO SCH (08:42)
[2019-01-20] MEDS: GABAPENTIN 100 MG CAPSULE PO SCH (08:42)
[2019-01-20] MEDS: TRAMADOL HCL 50 MG TABLET PO SCH ×3 (08:43→16:41)
[2019-01-20] MEDS: HEPARIN SODIUM,PORCINE 5,000 UNITS/ML VIAL SQ SCH ×2 (08:44→20:38)
[2019-01-20] MEDS: TRIAMCINOLONE ACET 0.1% CREAM 15 GM TUBE TOP SCH ×3 (08:44→16:42)
[2019-01-20] MEDS: Z GUARD REMEDY PASTE 57 GM TUBE TOP SCH ×2 (08:45→20:32)
[2019-01-20] MEDS: TEMAZEPAM 15 MG CAPSULE PO SCH (20:31)
[2019-01-20] MEDS: LOSARTAN POTASSIUM 50 MG TABLET PO SCH (20:37)
[2019-01-20] MEDS: CEFTRIAXONE 1 G in IV DEXTROSE 5% 50 ML IV SCH (20:56)
[2019-01-21 00:10] VITALS: BP 142/74
[2019-01-21] MEDS: METRONIDAZOLE 500 MG/NS 100ML 500 MG in PREMIXED 1 EACH IV SCH ×2 (02:03→10:37)
[2019-01-21] MEDS: IV D5/ 0.9% NACL 1,000 ML IV PRN (02:15)
[2019-01-21 04:00] VITALS: BP 140/62
[2019-01-21] MEDS: PANTOPRAZOLE SODIUM 40 MG TABLET.DR PO SCH (06:01)
[2019-01-21] MEDS: methylPREDNISolone SOD SUCC 40 MG/ML VIAL IV SCH (08:28)
[2019-01-21] MEDS: GABAPENTIN 100 MG CAPSULE PO SCH (08:28)
[2019-01-21] MEDS: ESCITALOPRAM OXALATE 10 MG TABLET PO SCH (08:28)
[2019-01-21] MEDS: MUPIROCIN 2% OINT 22 GM TUBE NS SCH ×2 (08:28→20:34)
[2019-01-21] MEDS: POTASSIUM CHLORIDE 10 MEQ TAB.PRT.SR PO SCH (08:28)
[2019-01-21] MEDS: QUETIAPINE FUMARATE 25 MG TABLET PO SCH ×2 (08:28→17:13)
[2019-01-21] MEDS: CHOLECALCIFEROL 1,000 UNIT TABLET PO SCH (08:29)
[2019-01-21] MEDS: TRAMADOL HCL 50 MG TABLET PO SCH ×3 (08:29→17:14)
[2019-01-21] MEDS: HEPARIN SODIUM,PORCINE 5,000 UNITS/ML VIAL SQ SCH ×2 (08:30→20:33)
[2019-01-21] MEDS: TRIAMCINOLONE ACET 0.1% CREAM 15 GM TUBE TOP SCH ×3 (08:31→17:15)
[2019-01-21] MEDS: Z GUARD REMEDY PASTE 57 GM TUBE TOP SCH ×2 (08:31→20:33)
[2019-01-21 11:20] VITALS: BP 158/60
[2019-01-21] MEDS ORDERED: MENT71OI TOP ×2 (13:43)
[2019-01-21] MEDS ORDERED: PANT40TA2 PO (13:43)
[2019-01-21 15:04] VITALS: BP 145/66
[2019-01-21] MEDS ORDERED: CLONIDINE HCL 0.1 MG TABLET PO PRN (17:00)
[2019-01-21] MEDS: LOSARTAN POTASSIUM 50 MG TABLET PO SCH (20:32)
[2019-01-21] MEDS: TEMAZEPAM 15 MG CAPSULE PO SCH (20:33)
[2019-01-21 20:47] VITALS: BP 137/53
[2019-01-21] MEDS: CEFTRIAXONE 1 G in IV DEXTROSE 5% 50 ML IV SCH (21:00)
== END 2019-01-21 21:25 | DRG 871 ==
LOC: ER 20:34 → EDBD 20:34 → MERGE 01-18 00:49 → TELE-TD3 01-18 00:49 → CCU 01-18 07:51 → MEDSURG3 01-18 22:40 → TELE-TD3 01-18 23:00 → TELE3 01-20 16:31
PROVIDERS: ADMIT Internal Medicine Nephrology; ATTEND Internal Medicine Nephrology
PROC: 02HV33Z Insertion of Infusion Device into Superior Vena Cava, Percutaneous Approach (ICD-10-PCS; principal; 2019-01-18)
PROC: B548ZZA Ultrasonography of Superior Vena Cava, Guidance (ICD-10-PCS; 2019-01-18)
DX: A41.59 Other Gram-negative sepsis (principal); G92 Toxic encephalopathy; N39.0 Urinary tract infection, site not specified; E87.2 Acidosis; E27.40 Unspecified adrenocortical insufficiency; R65.20 Severe sepsis without septic shock; G30.9 Alzheimer's disease, unspecified; F02.80 Dementia in other diseases classified elsewhere, unspecified severity, without behavioral disturbance, psychotic disturbance, mood disturbance, and anxiety; G89.4 Chronic pain syndrome; Z22.322 Carrier or suspected carrier of Methicillin resistant Staphylococcus aureus; B96.1 Klebsiella pneumoniae [K. pneumoniae] as the cause of diseases classified elsewhere; L21.9 Seborrheic dermatitis, unspecified; K81.9 Cholecystitis, unspecified; K52.9 Noninfective gastroenteritis and colitis, unspecified; Z85.828 Personal history of other malignant neoplasm of skin; N26.1 Atrophy of kidney (terminal); K86.89 Other specified diseases of pancreas; J47.9 Bronchiectasis, uncomplicated; Z87.01 Personal history of pneumonia (recurrent); I10 Essential (primary) hypertension
CPT/HCPCS: 36415; 36569; 70030-TC; 71045; 83605; 83735; 84100; 84132; 85025; 85730; 86625; 87040; 87046; 87077; 87086; 89055; 93005; A4217; A4663; C1758; G0378; J0696; J1644; J2270; J2405; J2543; J2920; J3475; J3480; J3490; J7030; J7042; J7050; J7060; J7512; Q9967